=== PATIENT | male | born 1960 ===

== ENCOUNTER 2018-11-26 16:37 | Outpatient (REF) | payer OTHER, SELFPAY ==
[2018-11-26 21:31] LABS: Anion Gap 6.8 mmol/L (3-11); BUN 13 mg/dL (7-18); CO2 29.2 mmol/L (21.0-32.0); CREATININE 1.08 mg/dL (0.70-1.30); Calcium 8.8 mg/dL (8.5-10.1); Chloride 102 mmol/L (98-107); FREE T4 1.26 ng/dL (0.76-1.46); Glucose 89 mg/dL (70-100); Potassium 4.1 mmol/L (3.5-5.1); Sodium 138 mmol/L (136-145); TSH 0.03 uIU/mL (0.358-3.74)
== END 2018-11-26 16:57 ==
LOC: NCHCN 16:37
PROVIDERS: PCP Registered Nurse; Visit Provider Registered Nurse
DX: I10 Essential (primary) hypertension (principal); E11.9 Type 2 diabetes mellitus without complications; E03.9 Hypothyroidism, unspecified
CPT/HCPCS: 80048; 84439; 84443

== ENCOUNTER 2019-06-09 18:08 | Outpatient (REF) | payer BC, SELFPAY ==
[2019-06-09 22:41] LABS: Anion Gap 8.5 mmol/L (3-11); BUN 16 mg/dL (7-18); CO2 27.5 mmol/L (21.0-32.0); Calcium 8.5 mg/dL (8.5-10.1); Chloride 105 mmol/L (98-107); Glucose 105 mg/dL (70-100); Potassium 3.6 mmol/L (3.5-5.1); Sodium 141 mmol/L (136-145)
[2019-06-09 22:47] LABS: TSH (W/Ref FT4) < 0.01 uIU/mL (0.36-3.74)
[2019-06-09 23:04] LABS: FREE T4 1.41 ng/dL (0.76-1.46)
== END 2019-06-09 18:28 ==
LOC: NCHCN 18:08
PROVIDERS: PCP Registered Nurse; Visit Provider Nurse Practitioner Family
DX: I10 Essential (primary) hypertension (principal); E11.9 Type 2 diabetes mellitus without complications; E03.9 Hypothyroidism, unspecified
CPT/HCPCS: 80048; 83036; 84439; 84443

== ENCOUNTER 2019-09-09 15:42 | Outpatient (REF) | payer BC, SELFPAY ==
[2019-09-09 21:42] LABS: TSH 0.14 uIU/mL (0.36-3.74)
== END 2019-09-09 16:02 ==
LOC: NCHCN 15:42
PROVIDERS: PCP Registered Nurse; Visit Provider Nurse Practitioner Family
DX: E03.9 Hypothyroidism, unspecified (principal)
CPT/HCPCS: 84443

== ENCOUNTER 2019-10-20 14:54 | Outpatient (REF) | payer BC, SELFPAY ==
[2019-10-20 22:00] LABS: TSH 0.36 uIU/mL (0.36-3.74)
== END 2019-10-20 15:14 ==
LOC: NCHCN 14:54
PROVIDERS: PCP Registered Nurse; Visit Provider Nurse Practitioner Family
DX: E03.9 Hypothyroidism, unspecified (principal)
CPT/HCPCS: 84443

== ENCOUNTER 2020-03-14 21:22 | Outpatient (REF) | payer BC, SELFPAY ==
[2020-03-14 22:14] LABS: ALT 25 U/L (16-63); AST 22 U/L (15-37); Albumin 3.9 g/dL (3.4-5.0); Alkaline Phosphatase 62 U/L (46-116); Anion Gap 8.7 mmol/L (3-11); BUN 14 mg/dL (7-18); Bilirubin, Total 0.4 mg/dL (0.2-1.0); CO2 27.3 mmol/L (21.0-32.0); COMMENT (LAB VIEW ONLY) 320.54 mg/dL; CREATININE 1.09 mg/dL (0.70-1.30); Calcium 9.2 mg/dL (8.5-10.1); Calculated LDL 122 mg/dL (<100); Chloride 107 mmol/L (98-107); Cholesterol 182 mg/dL (<200); Glucose 84 mg/dL (74-106); HDL Cholesterol 53 mg/dL (40-60); Microalb ug/mg Crea 4.1 ug/mg Cr; Potassium 3.8 mmol/L (3.5-5.1); Sodium 143 mmol/L (136-145); TSH 0.04 uIU/mL (0.36-3.74); Total Protein 7.3 g/dL (6.4-8.2); Triglyceride 38 mg/dL (<150)
== END 2020-03-14 21:42 ==
LOC: NCHCN 21:22
PROVIDERS: PCP Registered Nurse; Visit Provider Nurse Practitioner Family
DX: Z00.00 Encounter for general adult medical examination without abnormal findings (principal); Z13.29 Encounter for screening for other suspected endocrine disorder; Z13.220 Encounter for screening for lipoid disorders; Z13.228 Encounter for screening for other metabolic disorders
CPT/HCPCS: 80053; 80061; 82043; 82570; 84443

== ENCOUNTER 2020-05-03 20:29 | Outpatient (REF) | payer BC, SELFPAY ==
[2020-05-03 20:31] LABS: ALT 57 U/L (16-63); AST 36 U/L (15-37); Albumin 3.9 g/dL (3.4-5.0); Alkaline Phosphatase 71 U/L (46-116); Anion Gap 5.1 mmol/L (3-11); BUN 16 mg/dL (7-18); Bilirubin, Total 0.3 mg/dL (0.2-1.0); CO2 28.9 mmol/L (21.0-32.0); CREATININE 1.04 mg/dL (0.70-1.30); Calcium 8.9 mg/dL (8.5-10.1); Calculated LDL 113 mg/dL (<100); Chloride 107 mmol/L (98-107); Cholesterol 168 mg/dL (<200); Glucose 91 mg/dL (74-106); HDL Cholesterol 48 mg/dL (40-60); Potassium 3.9 mmol/L (3.5-5.1); Sodium 141 mmol/L (136-145); TSH 0.12 uIU/mL (0.36-3.74); Total Protein 7.1 g/dL (6.4-8.2); Triglyceride 38 mg/dL (<150)
== END 2020-05-03 20:49 ==
LOC: NCHCN 20:29
PROVIDERS: PCP Registered Nurse; Visit Provider Nurse Practitioner Family
DX: E78.00 Pure hypercholesterolemia, unspecified (principal); E03.9 Hypothyroidism, unspecified
CPT/HCPCS: 80053; 80061; 84443

== ENCOUNTER 2020-07-13 15:52 | Outpatient (REF) | payer BC, SELFPAY ==
[2020-07-13 22:16] LABS: TSH 0.97 uIU/mL (0.36-3.74)
== END 2020-07-13 16:12 ==
LOC: NCHCN 15:52
PROVIDERS: PCP Registered Nurse; Visit Provider Nurse Practitioner Family
DX: E03.9 Hypothyroidism, unspecified (principal)
CPT/HCPCS: 84443

== ENCOUNTER 2020-10-30 20:44 | Outpatient (REF) | payer BC, SELFPAY ==
[2020-10-30 22:18] LABS: ALT 28 U/L (16-63); AST 26 U/L (15-37); Albumin 3.8 g/dL (3.4-5.0); Alkaline Phosphatase 70 U/L (46-116); BUN 18 mg/dL (7-18); Bilirubin, Total 0.2 mg/dL (0.2-1.0); CREATININE 1.3 mg/dL (0.70-1.30); Calcium 9.2 mg/dL (8.5-10.1); Calculated LDL 103 mg/dL (<100); Chloride 105 mmol/L (98-107); Cholesterol 174 mg/dL (<200); Glucose 85 mg/dL (74-106); HDL Cholesterol 53 mg/dL (40-60); Sodium 142 mmol/L (136-145); TSH 7.91 uIU/mL (0.36-3.74); Total Protein 7.3 g/dL (6.4-8.2); Triglyceride 94 mg/dL (<150)
== END 2020-10-30 20:45 | disposition home or self-care (01) ==
LOC: NCHCN 20:44
PROVIDERS: PCP Registered Nurse; Visit Provider Nurse Practitioner Family
DX: I10 Essential (primary) hypertension (principal); E78.00 Pure hypercholesterolemia, unspecified; E11.9 Type 2 diabetes mellitus without complications
CPT/HCPCS: 80053; 80061; 84443

== ENCOUNTER 2021-01-29 21:44 | Outpatient (REF) | payer BC, SELFPAY ==
[2021-01-29 21:30] LABS: TSH 0.84 uIU/mL (0.36-3.74)
== END 2021-01-29 21:45 | disposition home or self-care (01) ==
LOC: NCHCN 21:44
PROVIDERS: PCP Registered Nurse; Visit Provider Nurse Practitioner Family
DX: E03.9 Hypothyroidism, unspecified (principal)
CPT/HCPCS: 84443

== ENCOUNTER 2021-07-10 18:21 | Outpatient (REF) | payer BC, SELFPAY ==
[2021-07-10 20:59] LABS: Microalb ug/mg Crea 8.4 ug/mg Cr
== END 2021-07-10 18:22 | disposition home or self-care (01) ==
LOC: NCHCN 18:21
PROVIDERS: PCP Registered Nurse; Visit Provider Nurse Practitioner Family
DX: E11.9 Type 2 diabetes mellitus without complications (principal)
CPT/HCPCS: 82043; 82570

== ENCOUNTER 2021-10-08 18:14 | Outpatient (REF) | payer BC, SELFPAY ==
[2021-10-08 20:53] LABS: HCT 39.3 % (40.0-50.0); HGB 12.5 g/dL (13.5-17.5); MCH 28.9 pg (27.0-33.0); MCHC 31.8 % (32.0-36.0); MPV 11.7 fL (8.0-11.0); Platelet Count 266 10^3/uL (130-400); RBC 4.32 10^6/uL (4.36-5.78); RDW 13.4 % (11.8-14.1); RDW-SD 45.2 fL; WBC 6.79 10^3/uL (4.4-10.8)
[2021-10-08 21:07] LABS: Anion Gap 7.2 mmol/L (3-11); BUN 12 mg/dL (7-18); CO2 28.8 mmol/L (21.0-32.0); CREATININE 1.1 mg/dL (0.70-1.30); Chloride 102 mmol/L (98-107); Glucose 87 mg/dL (74-106); Potassium 3.7 mmol/L (3.5-5.1); Sodium 138 mmol/L (136-145); TSH (W/Ref FT4) 0.75 uIU/mL (0.36-3.74); Uric Acid 6.9 mg/dL (3.5-7.2)
== END 2021-10-08 18:15 | disposition home or self-care (01) ==
LOC: NCHCN 18:14
PROVIDERS: PCP Registered Nurse; Visit Provider Nurse Practitioner Family
DX: I10 Essential (primary) hypertension (principal); M10.9 Gout, unspecified; Z51.81 Encounter for therapeutic drug level monitoring
CPT/HCPCS: 80048; 85027; 84443; 84550

== ENCOUNTER 2022-02-07 17:45 | Outpatient (REF) | payer BC, SELFPAY ==
[2022-02-07 20:20] LABS: HCT 39.9 % (40.0-50.0); MCHC 32.6 % (32.0-36.0); MCV 89 fL (80-95); Platelet Count 302 10^3/uL (130-400); RBC 4.49 10^6/uL (4.36-5.78); RDW 13.9 % (11.8-14.1); RDW-SD 45.1 fL; WBC 6.06 10^3/uL (4.4-10.8)
[2022-02-07 21:01] LABS: Calculated LDL 114 mg/dL (<100); Cholesterol 185 mg/dL (<200); Ferritin 118 ng/mL (26-388); Folate 8.6 ng/mL (8.6-20.0); HDL Cholesterol 57 mg/dL (40-60); Triglyceride 72 mg/dL (<150); Vitamin B12 540 pg/mL (193-986)
== END 2022-02-07 17:46 | disposition home or self-care (01) ==
LOC: NCHCN 17:45
PROVIDERS: PCP Registered Nurse; Visit Provider Nurse Practitioner Family
DX: D64.9 Anemia, unspecified (principal); I10 Essential (primary) hypertension
CPT/HCPCS: 80061; 85027; 82607; 82728; 82746